=== PATIENT | female | born 1995 | race Caucasian/White ===

== ENCOUNTER 2017-11-20 00:45 | Emergency (ER) | payer MEDICAID ==
[~2017-11-20] VITALS: Ht 154.9 cm; Wt 61.7 kg
[~2017-11-20 00:45] MED LIST: FERR325E14 PO; IBUP-2213 PO; PREN-234 PO
[2017-11-20 00:50] VITALS: BP 134/83
[2017-11-20 02:56] VITALS: BP 128/84
== END 2017-11-20 02:56 | disposition home or self-care (01) ==
LOC: MED 00:45
DX: L23.9 Allergic contact dermatitis, unspecified cause (principal); Z79.899 Other long term (current) drug therapy
CPT/HCPCS: 99282